=== PATIENT | female | born 1935 | race Caucasian/White ===

== ENCOUNTER 2017-04-15 19:33 | Inpatient (IN) | payer MEDICARE ==
[~2017-04-15] VITALS: Ht 165.1 cm; Wt 71.2 kg
[2017-04-15 19:59] LABS: BASOPHILS % (AUTO) 0.7 % (0.0-5.0); HEMATOCRIT 29.2 % (36-48); LYMPHOCYTES % (AUTO) 36.9 % (21.0-51.0); MEAN CORPUSCULAR HEMOGLOBIN 24.8 pg (27.0-33.0); MEAN CORPUSCULAR HGB CONC 30.9 g/dL (32.0-36.0); MEAN CORPUSCULAR VOLUME 80.2 fL (79-99); MONOCYTES % (AUTO) 4.6 % (3.0-13.0); NEUTROPHILS % (AUTO) 56.8 % (40.0-77.0); NUCLEATED RED BLOOD CELLS 0.1 % (0.0-0.19); PLATELET COUNT (AUTO) 341 K/uL (130-400); RED BLOOD CELL COUNT(AUTO) 3.64 MIL/uL (4.00-5.50); WHITE BLOOD COUNT (AUTO) 14.2 K/uL (4.8-10.8)
[2017-04-15 20:18] LABS: CREATININE 1.9 mg/dL (0.5-1.5)
[2017-04-15 20:19] LABS: APPEARANCE,URINE Cloudy (CLEAR); BILIRUBIN,URINE Negative (NEGATIVE); COLOR,URINE Yellow (YELLOW); GLUCOSE, URINE (UA) Negative (NEGATIVE); KETONES,URINE Negative (NEGATIVE); LEUKOCYTE ESTERASE ,URINE Large (NEGATIVE); NITRATE,URINE Positive (NEGATIVE); OCCULT BLOOD,URINE Negative (NEGATIVE); PH,URINE 7.5 (5.0-8.0); PROTEIN,URINE 300 (NEGATIVE)
[2017-04-15 20:19] LABS: INR 1.13 (0.85-1.15); PARTIAL THROMBOPLASTIN TIME 29.9 SEC (26.3-35.5); PROTHROMBIN TIME 11.8 SEC (9.6-11.6)
[2017-04-15 20:20] LABS: B-TYPE NATRIURETIC PEPTIDE 886 pg/mL (0-100)
[2017-04-15 20:24] LABS: BACTERIA,URINE Many /HPF (None Seen); SQUAMOUS EPITHELIAL CELL,UR 0-2 /LPF (0-2); WBC,URINE 26-50 /HPF (0-1)
[2017-04-15 20:25] LABS: RBC,URINE 0-1 /HPF (0-1)
[2017-04-15 20:28] LABS: ABG BASE EXCESS -4.6 mmol/L (-2.0-3.0); ABG HCO3 22.2 mmol/L (21.0-28.0); ABG OXYGEN SATURATION 99.6 % (95.0-99.0); ABG PCO2 47 mmHg (32-45)
[2017-04-15] MEDS ORDERED: LEVOFLOXACIN 500 MG/D5W 100 ML 100 ML ONE (20:28)
[2017-04-15] MEDS ORDERED: VANCOMYCIN 1GM+NS 250ML 250 ML IV ONE (20:29)
[2017-04-15 20:31] LABS: ALBUMIN 3.6 g/dL (3.5-5.0); BILIRUBIN,TOTAL 0.6 mg/dL (0.2-1.0); CREATINE KINASE MB 1.4 ng/mL (0.5-3.6); TOTAL PROTEIN, SERUM 7.7 g/dL (6.0-8.3)
[2017-04-15] MEDS ORDERED: IOPAMIDOL-370 75 ML VIAL IV ONE ×2 (20:41→21:05)
[2017-04-15 22:08] LABS: CREATININE 1.6 mg/dL (0.5-1.5)
[2017-04-15] MEDS ORDERED: PROPOFOL 1000 MG/100 ML 100 ML IV ONE (23:26)
[2017-04-16] VITALS (23 sets, daily range): BP systolic 124–170; BP diastolic 48–92
[2017-04-16] MEDS ORDERED: PROPOFOL 1000 MG/100 ML IV PRN (07:30)
[2017-04-16] MEDS ORDERED: PROPOFOL 1000 MG/100 ML 100 ML IV PRN (08:00)
[2017-04-16 11:55] LABS: ABG BASE EXCESS -2.7 mmol/L (-2.0-3.0); ABG HCO3 21.7 mmol/L (21.0-28.0); ABG OXYGEN SATURATION 97.2 % (95.0-99.0); ABG PCO2 37 mmHg (32-45)
[2017-04-16] MEDS ORDERED: METO100T14 PO ×2 (12:16→12:42)
[2017-04-16] MEDS ORDERED: ZOLP12.52 PO (12:16)
[2017-04-16] MEDS ORDERED: HYDR-4154 PO (12:16)
[2017-04-16] MEDS ORDERED: IRON-6 PO (12:16)
[2017-04-16] MEDS ORDERED: FENO145T PO (12:16)
[2017-04-16] MEDS ORDERED: SIMV10TA6 PO (12:16)
[2017-04-16] MEDS ORDERED: FURO40TA5 PO (12:16)
[2017-04-16] MEDS ORDERED: GLIM4TAB3 PO (12:16)
[2017-04-16] MEDS ORDERED: LEVO112T7 PO (12:16)
[2017-04-16] MEDS ORDERED: FISH1CAP27 PO (12:16)
[2017-04-16] MEDS ORDERED: METF-527 PO (12:16)
[2017-04-16] MEDS ORDERED: AMLO10TA2 PO (12:16)
[2017-04-16] MEDS ORDERED: LANS30CA55 PO (12:16)
[2017-04-16] MEDS ORDERED: ZOSYN 3.375GM+NS 50ML 50 ML IV SCH (15:00)
[2017-04-16] MEDS ORDERED: VANCOMYCIN PROTOCOL PER PHARMACY IV SCH (15:00)
[2017-04-16] MEDS ORDERED: PREG75 PO (15:45)
[2017-04-16] MEDS ORDERED: ZARO5 PO (15:45)
[2017-04-16] MEDS: MEROPENEM 1 GM VIAL IVP SCH ×2 (16:31→23:53)
[2017-04-16] MEDS: VANCOMYCIN 1GM+NS 250ML 250 ML IV SCH (16:32)
[2017-04-16 19:46] LABS: APPEARANCE BODY FLUID CLOUDY (CLEAR); BODY FLUID WBC 44 /cu. mm.; COLOR,BODY FLUID DARK YELLOW (LT YELLOW); SPECIMENTYPE,BODY FLUID PLEURAL; TOTAL VOLUME,BODY FLUID 600 mL
[2017-04-16 19:47] LABS: BODY FLUID RBC 5175 /cu. mm.
[2017-04-16 19:57] LABS: BF LYMPHOCYTE 72 %; BF MONOCYTE 15 %
[2017-04-16] MEDS ORDERED: OSELTAMIVIR PHOSPHATE 75 MG CAP PO SCH (21:00)
[2017-04-17] VITALS (24 sets, daily range): BP systolic 120–176; BP diastolic 37–67
[2017-04-17 04:22] LABS: BASOPHILS % (AUTO) 0.7 % (0.0-5.0); EOSINOPHILS % (AUTO) 0.2 % (0.0-8.0); HEMATOCRIT 22.9 % (36-48); LYMPHOCYTES % (AUTO) 13.6 % (21.0-51.0); MEAN CORPUSCULAR HEMOGLOBIN 26.1 pg (27.0-33.0); MEAN CORPUSCULAR HGB CONC 33.2 g/dL (32.0-36.0); MEAN CORPUSCULAR VOLUME 78.4 fL (79-99); MONOCYTES % (AUTO) 9.6 % (3.0-13.0); NEUTROPHILS % (AUTO) 75.9 % (40.0-77.0); PLATELET COUNT (AUTO) 236 K/uL (130-400); RED BLOOD CELL COUNT(AUTO) 2.92 MIL/uL (4.00-5.50); RED CELL DISTRIBUTION WIDTH 18.5 % (11.0-15.5); WHITE BLOOD COUNT (AUTO) 6.6 K/uL (4.8-10.8)
[2017-04-17 04:26] LABS: CREATININE 1.3 mg/dL (0.5-1.5); POTASSIUM 3.5 mmol/L (3.5-5.1)
[2017-04-17] MEDS ORDERED: LIDOCAINE HCL-MPF 1% 2ML VIAL IVP PRN (06:45)
[2017-04-17] MEDS ORDERED: POTASSIUM CHLORIDE 20MEQ/100ML 100 ML IV PRN (06:45)
[2017-04-17] MEDS ORDERED: POTASSIUM CHLORIDE 10% ELIXIR 20 MEQ/15 ML UDCUP PO PRN (06:45)
[2017-04-17] MEDS ORDERED: GLUCAGON 1MG KIT 1 MG ML IM PRN (06:45)
[2017-04-17] MEDS: INSULIN HUMULIN R 100 UNIT/ML 3ML SQ SCH ×4 (07:06→21:00)
[2017-04-17] MEDS: LEVOTHYROXINE 112 MCG TABLET PO SCH (07:36)
[2017-04-17] MEDS: MEROPENEM 1 GM VIAL IVP SCH ×2 (07:58→17:10)
[2017-04-17] MEDS: PANTOPRAZOLE SODIUM 40 MG TABLET.DR PO SCH (07:59)
[2017-04-17] MEDS: METOLAZONE 2.5 MG TABLET PO SCH (07:59)
[2017-04-17] MEDS: FENOFIBRATE NANOCRYSTALLIZED 145 MG TAB PO SCH (07:59)
[2017-04-17] MEDS: FISH OIL 1000 MG/CAP PO SCH (07:59)
[2017-04-17] MEDS: FUROSEMIDE 40 MG TABLET PO SCH ×2 (08:00→20:59)
[2017-04-17] MEDS: GLIMEPIRIDE 2 MG TABLET PO SCH (08:00)
[2017-04-17] MEDS: [UNRECOGNIZED DRUG - OTHER] PO SCH (08:07)
[2017-04-17] MEDS: PREGABALIN 75 MG CAPSULE PO SCH ×2 (08:07→20:58)
[2017-04-17] MEDS: METFORMIN HCL 500 MG TAB.SR.24H PO SCH ×2 (08:07→20:59)
[2017-04-17] MEDS ORDERED: COMPOUND PO MISCELLANEOUS 1 EACH MISC MISC PRN (09:15)
[2017-04-17] MEDS: OSELTAMIVIR SUSP 15 MG/ML (6 CAPS/29ML) PO SCH ×4 (09:44→21:03)
[2017-04-17] MEDS: VANCOMYCIN 1GM+NS 250ML 250 ML IV SCH (17:10)
[2017-04-17] MEDS: POTASSIUM CHLORIDE 20 MEQ ERTAB PO PRN ×2 (18:43→20:59)
[2017-04-17] MEDS: ATORVASTATIN CALCIUM 10 MG TABLET PO SCH (20:59)
[2017-04-17] MEDS: ZOLPIDEM TARTRATE 5 MG TAB PO PRN (21:51)
[2017-04-18] VITALS (13 sets, daily range): BP systolic 144–181; BP diastolic 53–67
[2017-04-18 04:08] LABS: BASOPHILS % (AUTO) 0.8 % (0.0-5.0); EOSINOPHILS % (AUTO) 2.6 % (0.0-8.0); HEMATOCRIT 23.8 % (36-48); LYMPHOCYTES % (AUTO) 16.5 % (21.0-51.0); MEAN CORPUSCULAR HEMOGLOBIN 24.7 pg (27.0-33.0); MEAN CORPUSCULAR HGB CONC 31.7 g/dL (32.0-36.0); MEAN CORPUSCULAR VOLUME 77.9 fL (79-99); MONOCYTES % (AUTO) 11.5 % (3.0-13.0); NEUTROPHILS % (AUTO) 68.6 % (40.0-77.0); PLATELET COUNT (AUTO) 249 K/uL (130-400); RED BLOOD CELL COUNT(AUTO) 3.06 MIL/uL (4.00-5.50); RED CELL DISTRIBUTION WIDTH 18.5 % (11.0-15.5); WHITE BLOOD COUNT (AUTO) 6.1 K/uL (4.8-10.8)
[2017-04-18 04:26] LABS: CREATININE 1.2 mg/dL (0.5-1.5); POTASSIUM 3.8 mmol/L (3.5-5.1)
[2017-04-18] MEDS: LEVOTHYROXINE 112 MCG TABLET PO SCH (05:58)
[2017-04-18] MEDS: INSULIN HUMULIN R 100 UNIT/ML 3ML SQ SCH ×4 (05:58→21:00)
[2017-04-18] MEDS: [UNRECOGNIZED DRUG - OTHER] PO SCH (09:00)
[2017-04-18] MEDS: METFORMIN HCL 500 MG TAB.SR.24H PO SCH ×2 (09:28→17:00)
[2017-04-18] MEDS: PREGABALIN 75 MG CAPSULE PO SCH ×2 (09:29→21:23)
[2017-04-18] MEDS: PANTOPRAZOLE SODIUM 40 MG TABLET.DR PO SCH (09:29)
[2017-04-18] MEDS: FUROSEMIDE 40 MG TABLET PO SCH ×2 (09:29→21:23)
[2017-04-18] MEDS: GLIMEPIRIDE 2 MG TABLET PO SCH (09:29)
[2017-04-18] MEDS: FENOFIBRATE NANOCRYSTALLIZED 145 MG TAB PO SCH (09:29)
[2017-04-18] MEDS: MEROPENEM 1 GM VIAL IVP SCH ×3 (09:29→17:03)
[2017-04-18] MEDS: FISH OIL 1000 MG/CAP PO SCH (09:30)
[2017-04-18] MEDS: OSELTAMIVIR SUSP 15 MG/ML (6 CAPS/29ML) PO SCH ×4 (09:43→21:22)
[2017-04-18] MEDS: VANCOMYCIN 1GM+NS 250ML 250 ML IV SCH (14:50)
[2017-04-18] MEDS: ATORVASTATIN CALCIUM 10 MG TABLET PO SCH (21:23)
[2017-04-18] MEDS: ZOLPIDEM TARTRATE 5 MG TAB PO PRN (21:27)
[2017-04-19] MEDS: MEROPENEM 1 GM VIAL IVP SCH ×3 (00:02→16:26)
[2017-04-19 04:00] VITALS: BP 155/58
[2017-04-19] MEDS: DEXTROSE 50%-WATER 50 ML DISP.SYRIN IV PRN (05:41)
[2017-04-19] MEDS: LEVOTHYROXINE 112 MCG TABLET PO SCH (06:39)
[2017-04-19] MEDS: INSULIN HUMULIN R 100 UNIT/ML 3ML SQ SCH ×4 (06:40→21:00)
[2017-04-19] MEDS ORDERED: CLONIDINE HCL 0.1 MG TABLET PO PRN (07:00)
[2017-04-19 08:00] VITALS: BP 140/62
[2017-04-19] MEDS: METFORMIN HCL 500 MG TAB.SR.24H PO SCH ×2 (08:00→15:18)
[2017-04-19] MEDS: OSELTAMIVIR SUSP 15 MG/ML (6 CAPS/29ML) PO SCH ×4 (09:00→22:57)
[2017-04-19] MEDS: [UNRECOGNIZED DRUG - OTHER] PO SCH (09:00)
[2017-04-19] MEDS ORDERED: REGADENOSON 0.4 MG/5 ML PF SYG IVP SCH (11:15)
[2017-04-19 11:38] VITALS: BP 173/63
[2017-04-19] MEDS: FISH OIL 1000 MG/CAP PO SCH (15:13)
[2017-04-19] MEDS: FENOFIBRATE NANOCRYSTALLIZED 145 MG TAB PO SCH (15:14)
[2017-04-19] MEDS: GLIMEPIRIDE 2 MG TABLET PO SCH (15:14)
[2017-04-19] MEDS: FUROSEMIDE 40 MG TABLET PO SCH ×2 (15:15→22:42)
[2017-04-19] MEDS: PREGABALIN 75 MG CAPSULE PO SCH ×2 (15:15→22:41)
[2017-04-19] MEDS: PANTOPRAZOLE SODIUM 40 MG TABLET.DR PO SCH (15:16)
[2017-04-19 16:00] VITALS: BP 158/65
[2017-04-19] MEDS: VANCOMYCIN 1GM+NS 250ML 250 ML IV SCH (16:41)
[2017-04-19 19:51] VITALS: BP 147/60
[2017-04-19] MEDS: ATORVASTATIN CALCIUM 10 MG TABLET PO SCH (22:41)
[2017-04-19] MEDS: ZOLPIDEM TARTRATE 5 MG TAB PO PRN (22:48)
[2017-04-20] VITALS (7 sets, daily range): BP systolic 116–151; BP diastolic 50–62
[2017-04-20] MEDS: MEROPENEM 1 GM VIAL IVP SCH ×4 (00:21→23:22)
[2017-04-20] MEDS: INSULIN HUMULIN R 100 UNIT/ML 3ML SQ SCH ×4 (06:56→21:00)
[2017-04-20] MEDS: LEVOTHYROXINE 112 MCG TABLET PO SCH (06:57)
[2017-04-20] MEDS: PANTOPRAZOLE SODIUM 40 MG TABLET.DR PO SCH (08:52)
[2017-04-20] MEDS: METOLAZONE 2.5 MG TABLET PO SCH (08:52)
[2017-04-20] MEDS: FENOFIBRATE NANOCRYSTALLIZED 145 MG TAB PO SCH (08:52)
[2017-04-20] MEDS: FISH OIL 1000 MG/CAP PO SCH (08:52)
[2017-04-20] MEDS: METFORMIN HCL 500 MG TAB.SR.24H PO SCH ×2 (08:53→16:40)
[2017-04-20] MEDS: GLIMEPIRIDE 2 MG TABLET PO SCH (08:53)
[2017-04-20] MEDS: PREGABALIN 75 MG CAPSULE PO SCH ×2 (08:54→21:07)
[2017-04-20] MEDS: FUROSEMIDE 40 MG TABLET PO SCH ×2 (08:54→21:06)
[2017-04-20] MEDS: [UNRECOGNIZED DRUG - OTHER] PO SCH (08:54)
[2017-04-20] MEDS: OSELTAMIVIR SUSP 15 MG/ML (6 CAPS/29ML) PO SCH ×4 (08:55→21:06)
[2017-04-20] MEDS: VANCOMYCIN 1GM+NS 250ML 250 ML IV SCH (14:26)
[2017-04-20] MEDS: ATORVASTATIN CALCIUM 10 MG TABLET PO SCH (21:07)
[2017-04-20] MEDS: ZOLPIDEM TARTRATE 5 MG TAB PO PRN (23:35)
[2017-04-21 03:44] VITALS: BP 143/50
[2017-04-21] MEDS: INSULIN HUMULIN R 100 UNIT/ML 3ML SQ SCH ×4 (05:53→21:00)
[2017-04-21] MEDS: LEVOTHYROXINE 112 MCG TABLET PO SCH (05:54)
[2017-04-21 06:14] LABS: HEMATOCRIT 24.9 % (36-48); MEAN CORPUSCULAR HGB CONC 34.4 g/dL (32.0-36.0); MEAN CORPUSCULAR VOLUME 75.6 fL (79-99); PLATELET COUNT (AUTO) 207 K/uL (130-400); RED CELL DISTRIBUTION WIDTH 17.2 % (11.0-15.5); WHITE BLOOD COUNT (AUTO) 6.4 K/uL (4.8-10.8)
[2017-04-21 06:17] LABS: CREATININE 1.4 mg/dL (0.5-1.5); POTASSIUM 3.3 mmol/L (3.5-5.1)
[2017-04-21 08:00] VITALS: BP 142/66
[2017-04-21] MEDS: [UNRECOGNIZED DRUG - OTHER] PO SCH (09:00)
[2017-04-21] MEDS: FENOFIBRATE NANOCRYSTALLIZED 145 MG TAB PO SCH (10:38)
[2017-04-21] MEDS: FISH OIL 1000 MG/CAP PO SCH (10:38)
[2017-04-21] MEDS: PANTOPRAZOLE SODIUM 40 MG TABLET.DR PO SCH (10:38)
[2017-04-21] MEDS: PREGABALIN 75 MG CAPSULE PO SCH ×2 (10:38→22:45)
[2017-04-21] MEDS: MEROPENEM 1 GM VIAL IVP SCH ×2 (10:38→17:28)
[2017-04-21] MEDS: METFORMIN HCL 500 MG TAB.SR.24H PO SCH ×2 (10:39→17:28)
[2017-04-21] MEDS: FUROSEMIDE 40 MG TABLET PO SCH ×2 (10:39→22:44)
[2017-04-21] MEDS: GLIMEPIRIDE 2 MG TABLET PO SCH (10:39)
[2017-04-21] MEDS: OSELTAMIVIR SUSP 15 MG/ML (6 CAPS/29ML) PO SCH ×4 (10:40→22:53)
[2017-04-21 11:00] VITALS: BP 136/56
[2017-04-21] MEDS: VANCOMYCIN 1GM+NS 250ML 250 ML IV SCH (15:45)
[2017-04-21 16:00] VITALS: BP 125/56
[2017-04-21 20:00] VITALS: BP 124/55
[2017-04-21] MEDS: ATORVASTATIN CALCIUM 10 MG TABLET PO SCH (22:45)
[2017-04-22] VITALS: BP 131/58
[2017-04-22] MEDS: MEROPENEM 1 GM VIAL IVP SCH ×3 (00:41→17:28)
[2017-04-22] MEDS: ZOLPIDEM TARTRATE 5 MG TAB PO PRN ×2 (00:42→22:04)
[2017-04-22 04:00] VITALS: BP 119/60
[2017-04-22] MEDS: LEVOTHYROXINE 112 MCG TABLET PO SCH (06:28)
[2017-04-22] MEDS: POTASSIUM CHLORIDE 20 MEQ ERTAB PO PRN (06:29)
[2017-04-22] MEDS: INSULIN HUMULIN R 100 UNIT/ML 3ML SQ SCH ×4 (06:32→21:00)
[2017-04-22 08:00] VITALS: BP 118/57
[2017-04-22] MEDS: [UNRECOGNIZED DRUG - OTHER] PO SCH (09:00)
[2017-04-22] MEDS: FISH OIL 1000 MG/CAP PO SCH (09:58)
[2017-04-22] MEDS: METFORMIN HCL 500 MG TAB.SR.24H PO SCH ×2 (09:58→17:28)
[2017-04-22] MEDS: FENOFIBRATE NANOCRYSTALLIZED 145 MG TAB PO SCH (09:58)
[2017-04-22] MEDS: PREGABALIN 75 MG CAPSULE PO SCH ×2 (09:59→22:04)
[2017-04-22] MEDS: PANTOPRAZOLE SODIUM 40 MG TABLET.DR PO SCH (09:59)
[2017-04-22] MEDS: GLIMEPIRIDE 2 MG TABLET PO SCH (09:59)
[2017-04-22] MEDS: FUROSEMIDE 40 MG TABLET PO SCH ×2 (09:59→22:04)
[2017-04-22 11:00] VITALS: BP 130/62
[2017-04-22 11:09] LABS: CREATININE 1.9 mg/dL (0.5-1.5); MAGNESIUM 1.5 mg/dL (1.80-2.40); POTASSIUM 4.4 mmol/L (3.5-5.1)
[2017-04-22] MEDS ORDERED: MAGNESIUM 2GM PREMIX 50ML 50 ML IV SCH (12:45)
[2017-04-22] MEDS: DILTIAZEM HCL 120 MG CAP.SR.24H PO SCH (13:05)
[2017-04-22 16:00] VITALS: BP 123/80
[2017-04-22] MEDS: VANCOMYCIN 1GM+NS 250ML 250 ML IV SCH (17:28)
[2017-04-22 20:00] VITALS: BP 110/56
[2017-04-22] MEDS: ATORVASTATIN CALCIUM 10 MG TABLET PO SCH (22:04)
[2017-04-23] VITALS: BP 105/55
[2017-04-23] MEDS: MEROPENEM 1 GM VIAL IVP SCH (01:19)
[2017-04-23 04:00] VITALS: BP 133/55
[2017-04-23] MEDS: LEVOTHYROXINE 112 MCG TABLET PO SCH (06:25)
[2017-04-23] MEDS: INSULIN HUMULIN R 100 UNIT/ML 3ML SQ SCH ×4 (06:52→21:00)
[2017-04-23 07:00] VITALS: BP 116/52
[2017-04-23] MEDS: DEXTROSE 50%-WATER 50 ML DISP.SYRIN IV PRN (07:00)
[2017-04-23] MEDS: METFORMIN HCL 500 MG TAB.SR.24H PO SCH ×2 (08:48→17:05)
[2017-04-23] MEDS ORDERED: ENOXAPARIN SODIUM 80 MG/0.8 ML SQ SCH (09:00)
[2017-04-23] MEDS: [UNRECOGNIZED DRUG - OTHER] PO SCH (09:00)
[2017-04-23] MEDS ORDERED: ENOXAPARIN SODIUM 1 MG/KG SQ SCH (09:00)
[2017-04-23] MEDS: METOLAZONE 2.5 MG TABLET PO SCH (10:18)
[2017-04-23] MEDS: DILTIAZEM HCL 120 MG CAP.SR.24H PO SCH (10:18)
[2017-04-23] MEDS: PREGABALIN 75 MG CAPSULE PO SCH ×2 (10:18→21:32)
[2017-04-23] MEDS: FISH OIL 1000 MG/CAP PO SCH (10:18)
[2017-04-23] MEDS: PANTOPRAZOLE SODIUM 40 MG TABLET.DR PO SCH (10:18)
[2017-04-23] MEDS: FENOFIBRATE NANOCRYSTALLIZED 145 MG TAB PO SCH (10:18)
[2017-04-23] MEDS: FUROSEMIDE 40 MG TABLET PO SCH ×2 (10:19→21:32)
[2017-04-23 11:00] VITALS: BP 114/47
[2017-04-23 16:00] VITALS: BP 121/50
[2017-04-23] MEDS ORDERED: COMPOUND IV REFRIGERATED 1 EACH IVSOLN MISC PRN (17:15)
[2017-04-23 19:57] VITALS: BP 126/48
[2017-04-23] MEDS: ATORVASTATIN CALCIUM 10 MG TABLET PO SCH (21:32)
[2017-04-23] MEDS: APIXABAN 5 MG TABLET PO SCH (21:32)
[2017-04-23] MEDS: ZOLPIDEM TARTRATE 5 MG TAB PO PRN (21:34)
[2017-04-24] VITALS: BP 103/54
[2017-04-24 04:00] VITALS: BP 119/57
[2017-04-24] MEDS: LEVOTHYROXINE 112 MCG TABLET PO SCH (06:47)
[2017-04-24] MEDS: INSULIN HUMULIN R 100 UNIT/ML 3ML SQ SCH ×2 (07:30→11:30)
[2017-04-24 08:00] VITALS: BP 134/46
[2017-04-24] MEDS ORDERED: VANCOMYCIN 750MG + NS 250 ML IV SCH ×2 (09:00)
[2017-04-24] MEDS: [UNRECOGNIZED DRUG - OTHER] PO SCH (09:00)
[2017-04-24] MEDS: PREGABALIN 75 MG CAPSULE PO SCH (09:57)
[2017-04-24] MEDS: METFORMIN HCL 500 MG TAB.SR.24H PO SCH (09:57)
[2017-04-24] MEDS: DILTIAZEM HCL 120 MG CAP.SR.24H PO SCH (09:57)
[2017-04-24] MEDS: FISH OIL 1000 MG/CAP PO SCH (09:58)
[2017-04-24] MEDS: APIXABAN 5 MG TABLET PO SCH (09:58)
[2017-04-24] MEDS: PANTOPRAZOLE SODIUM 40 MG TABLET.DR PO SCH (09:58)
[2017-04-24] MEDS: FENOFIBRATE NANOCRYSTALLIZED 145 MG TAB PO SCH (09:58)
[2017-04-24] MEDS: FUROSEMIDE 40 MG TABLET PO SCH (09:58)
[2017-04-24] MEDS ORDERED: LOPERAMIDE HCL 2 MG CAP PO PRN (11:00)
[2017-04-24 11:27] VITALS: BP 129/62
[2017-04-24 16:00] VITALS: BP 141/61
[2017-04-24] MEDS ORDERED: METRONIDAZOLE 500 MG TABLET PO SCH (21:00)
== END 2017-04-24 17:49 | DRG 208 ==
LOC: EDH 19:33 → EDHIP 22:36 → 2BH 04-16 00:47 → 3DH 04-18 15:58
PROVIDERS: ADMIT Internal Medicine; ATTEND Internal Medicine
PROC: 0W993ZZ Drainage of Right Pleural Cavity, Percutaneous Approach (ICD-10-PCS; principal; 2017-04-16)
PROC: 5A1935Z Respiratory Ventilation, Less than 24 Consecutive Hours (ICD-10-PCS; 2017-04-16)
PROC: 0BH17EZ Insertion of Endotracheal Airway into Trachea, Via Natural or Artificial Opening (ICD-10-PCS; 2017-04-16)
DX: J96.01 Acute respiratory failure with hypoxia (principal); I46.9 Cardiac arrest, cause unspecified; I50.43 Acute on chronic combined systolic (congestive) and diastolic (congestive) heart failure; A41.9 Sepsis, unspecified organism; J18.9 Pneumonia, unspecified organism; N18.3 Chronic kidney disease, stage 3 (moderate); I13.0 Hypertensive heart and chronic kidney disease with heart failure and stage 1 through stage 4 chronic kidney disease, or unspecified chronic kidney disease; E11.22 Type 2 diabetes mellitus with diabetic chronic kidney disease; E11.42 Type 2 diabetes mellitus with diabetic polyneuropathy; I48.2 Chronic atrial fibrillation; D64.9 Anemia, unspecified; I25.10 Atherosclerotic heart disease of native coronary artery without angina pectoris; E87.6 Hypokalemia; E03.9 Hypothyroidism, unspecified; E78.5 Hyperlipidemia, unspecified; G47.00 Insomnia, unspecified; I89.0 Lymphedema, not elsewhere classified; Z85.41 Personal history of malignant neoplasm of cervix uteri; Z88.8 Allergy status to other drugs, medicaments and biological substances
CPT/HCPCS: 36415; 36600; 70450; 71045; 71275; 74177; 78452; 80048; 80053; 80202; 80339; 81001; 82550; 82553; 82565; 82803; 82945; 82947; 82948; 83605; 83615; 83735; 83880; 83986; 84157; 84484; 84520; 85025; 85027; 85378; 85610; 85730; 86850; 86900; 86901; 87040; 87071; 87088; 87103; 87116; 87205; 87206; 87804; 87880; 88108; 88305; 88341; 88342; 89051; 93005; 93017; 93306; 94002; 94003; 96374; 97039; 99291; A4218; A9500; C1729; J1650; J1815; J1956; J2185; J2704; J2785; J3370; J3475; J7030; J7070; Q9967

== ENCOUNTER 2017-07-01 13:25 | Inpatient (IN) | payer MEDICARE ==
[~2017-07-01] VITALS: Ht 160 cm; Wt 64.4 kg
[~2017-07-01 13:25] MED LIST: AMLO10TA2 PO; FENO145T PO; FISH1CAP27 PO; FURO40TA5 PO; GLIM4TAB3 PO; HYDR-4154 PO; IRON-6 PO; LANS30CA55 PO; LEVO112T7 PO; METF-527 PO; METO100T14 PO; PREG75 PO; SIMV10TA6 PO; ZARO5 PO; ZOLP12.52 PO
[2017-07-01 14:43] LABS: BASOPHILS % (AUTO) 0.7 % (0.0-5.0); EOSINOPHILS % (AUTO) 6.3 % (0.0-8.0); HEMATOCRIT 29.8 % (36-48); LYMPHOCYTES % (AUTO) 18.7 % (21.0-51.0); MEAN CORPUSCULAR HEMOGLOBIN 23.6 pg (27.0-33.0); MEAN CORPUSCULAR VOLUME 73.9 fL (79-99); MONOCYTES % (AUTO) 9.6 % (3.0-13.0); NEUTROPHILS % (AUTO) 64.7 % (40.0-77.0); PLATELET COUNT (AUTO) 377 K/uL (130-400); RED BLOOD CELL COUNT(AUTO) 4.03 MIL/uL (4.00-5.50)
[2017-07-01 14:53] LABS: CREATININE 2.2 mg/dL (0.5-1.5); POTASSIUM 3.7 mmol/L (3.5-5.1)
[2017-07-01 14:58] LABS: ALBUMIN 3.1 g/dL (3.5-5.0); BILIRUBIN,TOTAL 0.3 mg/dL (0.2-1.0); TOTAL PROTEIN, SERUM 7.1 g/dL (6.0-8.3)
[2017-07-01 15:24] LABS: APPEARANCE,URINE Cloudy (CLEAR); BILIRUBIN,URINE Negative (NEGATIVE); COLOR,URINE Yellow (YELLOW); GLUCOSE, URINE (UA) Negative (NEGATIVE); KETONES,URINE Negative (NEGATIVE); LEUKOCYTE ESTERASE ,URINE Large (NEGATIVE); NITRATE,URINE Negative (NEGATIVE); OCCULT BLOOD,URINE Negative (NEGATIVE); PH,URINE 5.5 (5.0-8.0); PROTEIN,URINE Negative (NEGATIVE); UROBILINOGEN,URINE 0.2 mg/dL (0.2-1.0)
[2017-07-01] MEDS ORDERED: CEFTRIAXONE SODIUM 1 GM ONE (15:32)
[2017-07-01] MEDS ORDERED: LORAZEPAM 2 MG/ML 1 ML VIAL ONE (15:33)
[2017-07-01] MEDS ORDERED: SODIUM CHLORIDE 0.9% 500ML 500 ML IV ONE (15:33)
[2017-07-01 15:47] LABS: BACTERIA,URINE Moderate /HPF (None Seen); RBC,URINE None Seen /HPF (0-1); WBC,URINE 26-50 /HPF (0-1)
[2017-07-01 15:48] LABS: SQUAMOUS EPITHELIAL CELL,UR 0-2 /HPF (0-2)
[2017-07-01] MEDS ORDERED: DEXTROSE 50%-WATER 50 ML DISP.SYRIN IV ONE (16:43)
[2017-07-01] MEDS: 1/2 NORMAL SALINE 1,000 ML IV SCH ×2 (17:30→22:03)
[2017-07-01 20:45] VITALS: BP 148/68
[2017-07-01 23:50] VITALS: BP 156/61
[2017-07-02] MEDS ORDERED: BISA10SU8 RC (00:54)
[2017-07-02] MEDS ORDERED: POTA20PA32 PO (00:54)
[2017-07-02] MEDS ORDERED: APIX5TAB PO (00:54)
[2017-07-02] MEDS ORDERED: ACET-2900 PO (00:54)
[2017-07-02] MEDS ORDERED: GLIM1TAB2 PO (00:54)
[2017-07-02] MEDS ORDERED: PANT40TA25 PO (00:54)
[2017-07-02] MEDS ORDERED: LEVE500T8 PO (00:54)
[2017-07-02] MEDS ORDERED: DILT240C93 PO (00:54)
[2017-07-02 04:10] VITALS: BP 137/68
[2017-07-02] MEDS: 1/2 NORMAL SALINE 1,000 ML IV SCH ×2 (05:58→14:03)
[2017-07-02] MEDS ORDERED: DEXTROSE 50%-WATER 50 ML DISP.SYRIN IV PRN (06:15)
[2017-07-02] MEDS ORDERED: GLUCAGON 1MG KIT 1 MG ML IM PRN (06:15)
[2017-07-02] MEDS: INSULIN HUMULIN R 100 UNIT/ML 3ML SQ SCH ×4 (06:46→21:00)
[2017-07-02 07:00] VITALS: BP 151/65
[2017-07-02] MEDS ORDERED: BISACODYL 10 MG SUPP.RECT RC PRN (07:00)
[2017-07-02] MEDS ORDERED: ACETAMINOPHEN EXTENDED RELEASE 650 MG TABLET PO PRN (07:00)
[2017-07-02] MEDS ORDERED: GLIMEPIRIDE 2 MG TABLET PO SCH (08:00)
[2017-07-02] MEDS: FENOFIBRATE NANOCRYSTALLIZED 145 MG TAB PO SCH (08:03)
[2017-07-02] MEDS: HYDRALAZINE HCL 25 MG TABLET PO SCH ×2 (08:03→19:47)
[2017-07-02] MEDS: LEVOTHYROXINE 112 MCG TABLET PO SCH (08:03)
[2017-07-02] MEDS: DILTIAZEM HCL 120 MG CAP.SR.24H PO SCH (08:03)
[2017-07-02] MEDS: METFORMIN HCL 500 MG TABLET PO SCH ×2 (08:04→17:00)
[2017-07-02] MEDS: PANTOPRAZOLE SODIUM 40 MG TABLET.DR PO SCH (08:04)
[2017-07-02] MEDS: LEVETIRACETAM 500 MG TABLET PO SCH ×2 (08:04→19:46)
[2017-07-02] MEDS: POTASSIUM CHLORIDE 20 MEQ ERTAB PO SCH ×3 (08:05→18:00)
[2017-07-02] MEDS: ENOXAPARIN SODIUM 40 MG/0.4 ML SYRINGE SQ SCH (08:07)
[2017-07-02] MEDS ORDERED: METOLAZONE 2.5 MG TABLET PO SCH (09:00)
[2017-07-02] MEDS: APIXABAN 5 MG TABLET PO SCH (09:39)
[2017-07-02] MEDS ORDERED: PHARMACY COMMUNICATION MISC SCH (10:45)
[2017-07-02 11:00] VITALS: BP 126/59
[2017-07-02 15:00] VITALS: BP 135/56
[2017-07-02] MEDS ORDERED: CEFTRIAXONE SODIUM 1 GM IVP SCH (15:00)
[2017-07-02 19:00] VITALS: BP 139/58
[2017-07-02] MEDS ORDERED: ATORVASTATIN CALCIUM 10 MG TABLET PO SCH (21:00)
[2017-07-02] MEDS ORDERED: ZOLPIDEM TARTRATE 12.5 MG PO SCH (21:00)
[2017-07-02] MEDS ORDERED: PREGABALIN 75 MG CAPSULE PO SCH (21:00)
[2017-07-02] MEDS ORDERED: ZOLPIDEM TARTRATE 5 MG TAB PO PRN (21:45)
[2017-07-02 23:00] VITALS: BP 143/63
[2017-07-03 03:00] VITALS: BP 139/65
[2017-07-03] MEDS: 1/2 NORMAL SALINE 1,000 ML IV SCH (03:43)
[2017-07-03] MEDS: LEVOTHYROXINE 112 MCG TABLET PO SCH (07:30)
[2017-07-03] MEDS: INSULIN HUMULIN R 100 UNIT/ML 3ML SQ SCH ×2 (07:30→11:30)
[2017-07-03 07:43] VITALS: BP 144/56
[2017-07-03] MEDS: METFORMIN HCL 500 MG TABLET PO SCH (08:00)
[2017-07-03] MEDS: FENOFIBRATE NANOCRYSTALLIZED 145 MG TAB PO SCH (09:14)
[2017-07-03] MEDS: LEVETIRACETAM 500 MG TABLET PO SCH (09:14)
[2017-07-03] MEDS: PANTOPRAZOLE SODIUM 40 MG TABLET.DR PO SCH (09:14)
[2017-07-03] MEDS: APIXABAN 5 MG TABLET PO SCH (09:14)
[2017-07-03] MEDS: POTASSIUM CHLORIDE 20 MEQ ERTAB PO SCH ×2 (09:14→13:02)
[2017-07-03] MEDS: DILTIAZEM HCL 120 MG CAP.SR.24H PO SCH (09:15)
[2017-07-03] MEDS: HYDRALAZINE HCL 25 MG TABLET PO SCH (09:15)
[2017-07-03] MEDS: ENOXAPARIN SODIUM 40 MG/0.4 ML SYRINGE SQ SCH (09:19)
[2017-07-03 11:49] VITALS: BP 143/63
== END 2017-07-03 13:25 | disposition home or self-care (01) | DRG 683 ==
LOC: EDH 13:25 → EDHIP 16:19 → 3AH 20:16
PROVIDERS: ADMIT Internal Medicine; ATTEND Internal Medicine
DX: N17.9 Acute kidney failure, unspecified (principal); N39.0 Urinary tract infection, site not specified; I48.91 Unspecified atrial fibrillation; R56.9 Unspecified convulsions; Z86.74 Personal history of sudden cardiac arrest; E86.0 Dehydration; E11.9 Type 2 diabetes mellitus without complications; I10 Essential (primary) hypertension; E07.9 Disorder of thyroid, unspecified; Z88.8 Allergy status to other drugs, medicaments and biological substances
CPT/HCPCS: 36415; 70450; 70551; 80053; 81001; 82550; 82947; 82948; 85025; 93005; 95819; 97039; A4218; J0696; J1650; J2060; J7040; J7070

== ENCOUNTER → 2017-07-09 | Outpatient (CLI) | payer MEDICARE ==
[~2017-07-09] MED LIST changes: +ACET-2900 PO; +APIX5TAB PO; +BISA10SU8 RC; +DILT240C93 PO; -GLIM4TAB3 PO; +LEVE500T8 PO; -METF-527 PO; +PANT40TA25 PO; +POTA20PA32 PO
== END | disposition home or self-care (01) ==
LOC: OIH 13:23
PROVIDERS: ATTEND Internal Medicine
DX: M17.12 Unilateral primary osteoarthritis, left knee (principal)
CPT/HCPCS: 73560

== ENCOUNTER 2017-07-20 20:59 | Observation (INO) | payer MEDICARE ==
[~2017-07-20] VITALS: Ht 160 cm; Wt 63.5 kg
[2017-07-20 21:29] LABS: BASOPHILS % (AUTO) 0.9 % (0.0-5.0); EOSINOPHILS % (AUTO) 6.5 % (0.0-8.0); HEMATOCRIT 28.7 % (36-48); LYMPHOCYTES % (AUTO) 35.1 % (21.0-51.0); MEAN CORPUSCULAR HEMOGLOBIN 24.9 pg (27.0-33.0); MEAN CORPUSCULAR HGB CONC 33.5 g/dL (32.0-36.0); MEAN CORPUSCULAR VOLUME 74.3 fL (79-99); MONOCYTES % (AUTO) 10.1 % (3.0-13.0); NEUTROPHILS % (AUTO) 47.4 % (40.0-77.0); PLATELET COUNT (AUTO) 273 K/uL (130-400); RED BLOOD CELL COUNT(AUTO) 3.86 MIL/uL (4.00-5.50); RED CELL DISTRIBUTION WIDTH 20.2 % (11.0-15.5); WHITE BLOOD COUNT (AUTO) 7.1 K/uL (4.8-10.8)
[2017-07-20 21:30] LABS: CREATININE 1.8 mg/dL (0.5-1.5); POTASSIUM 3.5 mmol/L (3.5-5.1)
[2017-07-20 21:35] LABS: ALBUMIN 3.5 g/dL (3.5-5.0); BILIRUBIN,TOTAL 0.3 mg/dL (0.2-1.0); TOTAL PROTEIN, SERUM 7.4 g/dL (6.0-8.3)
[2017-07-20 21:42] LABS: B-TYPE NATRIURETIC PEPTIDE 36 pg/mL (0-100)
[2017-07-20] MEDS ORDERED: LEVETIRACETAM 500 MG TABLET PO ONE (22:35)
[2017-07-20 22:52] LABS: APPEARANCE,URINE Clear (CLEAR); BILIRUBIN,URINE Negative (NEGATIVE); COLOR,URINE Yellow (YELLOW); GLUCOSE, URINE (UA) Negative (NEGATIVE); KETONES,URINE Negative (NEGATIVE); LEUKOCYTE ESTERASE ,URINE Negative (NEGATIVE); NITRATE,URINE Negative (NEGATIVE); OCCULT BLOOD,URINE Negative (NEGATIVE); PH,URINE 6.5 (5.0-8.0); PROTEIN,URINE Negative (NEGATIVE); UROBILINOGEN,URINE 0.2 mg/dL (0.2-1.0)
[2017-07-21] MEDS ORDERED: DEXTROSE 50%-WATER 50 ML DISP.SYRIN IV PRN (01:15)
[2017-07-21] MEDS ORDERED: GLUCAGON 1MG KIT 1 MG ML IM PRN (01:15)
[2017-07-21] MEDS ORDERED: INSULIN R PO SS1 SQ SCH (07:30)
[2017-07-21] MEDS ORDERED: ASPIRIN 325 MG TABLET PO SCH (09:00)
== END 2017-07-21 08:40 | disposition home or self-care (01) ==
LOC: EDH 20:59 → EDHIP 07-21 00:54
PROVIDERS: ADMIT Internal Medicine; ATTEND Internal Medicine
DX: R53.1 Weakness (principal); E78.5 Hyperlipidemia, unspecified; I25.10 Atherosclerotic heart disease of native coronary artery without angina pectoris; M15.9 Polyosteoarthritis, unspecified; I11.0 Hypertensive heart disease with heart failure; I50.32 Chronic diastolic (congestive) heart failure; Z86.74 Personal history of sudden cardiac arrest
CPT/HCPCS: 36415; 70450; 71045; 80053; 81003; 82550; 82948; 83880; 84484; 85025; 93005; 99285; G0378 ×8

== ENCOUNTER → 2018-01-21 | Outpatient (CLI) | payer MEDICARE ==
[~2018-01-21] MED LIST changes: -AMLO10TA2 PO; +AMLO10TA6 PO
== END | disposition home or self-care (01) ==
LOC: RAH 11:10
PROVIDERS: ATTEND Orthopaedic Surgery
DX: S93.492D Sprain of other ligament of left ankle, subsequent encounter (principal); M89.8X7 Other specified disorders of bone, ankle and foot; X58.XXXD Exposure to other specified factors, subsequent encounter
CPT/HCPCS: 73721

== ENCOUNTER 2018-10-06 22:17 | Emergency (ER) | payer MEDICARE ==
[~2018-10-06 22:17] MED LIST changes: -AMLO10TA6 PO; +AMLO10TA7 PO; +BISA10SU11 RC; -BISA10SU8 RC
[2018-10-06] MEDS ORDERED: LIDOCAINE HCL 2% VISCOUS 15 ML UDCUP ONE (22:51)
[2018-10-06] MEDS ORDERED: NEOMY SULF/BACITRA/POLYMYXIN B 1 EACH PACKET TP ONE (23:14)
[2018-10-06] MEDS ORDERED: TETANUS/DIPHTHERIA TOXOID [ADULT] 0.5 ML VIAL IM ONE (23:57)
== END 2018-10-07 00:12 | disposition home or self-care (01) ==
LOC: EDH 22:17
DX: S51.012A Laceration without foreign body of left elbow, initial encounter (principal); S51.812A Laceration without foreign body of left forearm, initial encounter; I10 Essential (primary) hypertension; E11.9 Type 2 diabetes mellitus without complications; Z88.8 Allergy status to other drugs, medicaments and biological substances; Z90.710 Acquired absence of both cervix and uterus; Z90.49 Acquired absence of other specified parts of digestive tract; Z98.890 Other specified postprocedural states; W18.39XA Other fall on same level, initial encounter; Y93.89 Activity, other specified; Y92.89 Other specified places as the place of occurrence of the external cause; Y99.8 Other external cause status
CPT/HCPCS: 73070; 90471; 90714

== ENCOUNTER → 2018-11-13 | Outpatient (CLI) | payer MEDICARE | END | disposition home or self-care (01) | LOC: RAH 15:35 | PROVIDERS: ATTEND Internal Medicine | DX: M41.85 Other forms of scoliosis, thoracolumbar region (principal) | CPT/HCPCS: 72081 ==

== ENCOUNTER 2018-12-03 21:09 | Emergency (ER) | payer MEDICARE ==
[2018-12-03 22:04] LABS: BASOPHILS % (AUTO) 0.6 % (0.0-5.0); EOSINOPHILS % (AUTO) 0.6 % (0.0-8.0); LYMPHOCYTES % (AUTO) 6.2 % (21.0-51.0); MEAN CORPUSCULAR HGB CONC 33.3 g/dL (32.0-36.0); MEAN CORPUSCULAR VOLUME 89.9 fL (79-99); MONOCYTES % (AUTO) 5.3 % (3.0-13.0); NEUTROPHILS % (AUTO) 87.3 % (40.0-77.0); PLATELET COUNT (AUTO) 185 K/uL (130-400); RED BLOOD CELL COUNT(AUTO) 3.33 MIL/uL (4.00-5.50); RED CELL DISTRIBUTION WIDTH 12.7 % (11.0-15.5); WHITE BLOOD COUNT (AUTO) 10.3 K/uL (4.8-10.8)
[2018-12-03] MEDS ORDERED: LIDOCAINE HCL 2% 20ML ONE (22:11)
[2018-12-03 22:13] LABS: CREATININE 2.9 mg/dL (0.5-1.5); POTASSIUM 4.2 mmol/L (3.5-5.1)
[2018-12-03 22:14] LABS: INR 1.2 (0.85-1.15); PARTIAL THROMBOPLASTIN TIME 35.5 SEC (26.3-35.5); PROTHROMBIN TIME 12.5 SEC (9.6-11.6)
[2018-12-03 22:17] LABS: ALBUMIN 3.4 g/dL (3.5-5.0); BILIRUBIN,TOTAL 0.3 mg/dL (0.2-1.0); TOTAL PROTEIN, SERUM 6.3 g/dL (6.0-8.3)
== END 2018-12-03 23:23 | disposition home or self-care (01) ==
LOC: EDH 21:09
DX: S51.011A Laceration without foreign body of right elbow, initial encounter (principal); I10 Essential (primary) hypertension; N28.9 Disorder of kidney and ureter, unspecified; E11.9 Type 2 diabetes mellitus without complications; Z90.49 Acquired absence of other specified parts of digestive tract; Z90.710 Acquired absence of both cervix and uterus; Z98.890 Other specified postprocedural states; Z88.8 Allergy status to other drugs, medicaments and biological substances; W18.39XA Other fall on same level, initial encounter; Y93.89 Activity, other specified; Y92.89 Other specified places as the place of occurrence of the external cause; Y99.8 Other external cause status
CPT/HCPCS: 12032; 36415; 70450; 71045; 72125; 73070; 80053; 84484; 85025; 85610; 85730; 93005; J3490